=== PATIENT | female | born 1975 | race Native Hawaiian/Other Pacific Islander ===

== ENCOUNTER 2016-08-24 06:14 | Emergency (ER) | payer BC ==
[~2016-08-24] VITALS: Ht 162.6 cm; Wt 55.8 kg
[2016-08-24 07:06] LABS: PLATELET COUNT 290 K/uL (152-353)
[2016-08-24 07:31] LABS: POTASSIUM 4.4 mmol/L (3.6-5.2); SODIUM 138 mmol/L (136-145)
[2016-08-24 10:50] VITALS: BP 100/60; TEMP 98
== END 2016-08-24 10:50 | disposition home or self-care (01) ==
LOC: ED 06:14
DX: B96.81 Helicobacter pylori [H. pylori] as the cause of diseases classified elsewhere (principal); K29.70 Gastritis, unspecified, without bleeding; N94.89 Other specified conditions associated with female genital organs and menstrual cycle
CPT/HCPCS: 80053; 81000; 85027; 86318; 99283; Q9963

== ENCOUNTER 2017-08-16 10:42 | Outpatient (CLI) | payer BC | END 2017-08-16 23:15 | disposition home or self-care (01) | LOC: RAD 10:42 | DX: M79.671 Pain in right foot (principal) ==

== ENCOUNTER 2018-01-10 12:37 | Emergency (ER) | payer BC ==
[~2018-01-10] VITALS: Ht 162.6 cm; Wt 58.1 kg
[2018-01-10 12:41] VITALS: BP 121/69; TEMP 98.1
== END 2018-01-10 13:26 | disposition home or self-care (01) ==
LOC: ED 12:37
DX: S81.851A Open bite, right lower leg, initial encounter (principal); W54.0XXA Bitten by dog, initial encounter
CPT/HCPCS: 90471; 90715; 96372; 99282

== ENCOUNTER 2018-10-17 15:39 | Outpatient (CLI) | payer BC, OTHER | END 2018-10-17 15:42 | disposition short-term general hospital (02) | LOC: AMB 15:39 | DX: M54.2 Cervicalgia (principal); M54.5 Low back pain; V59.50XA Passenger in pick-up truck or van injured in collision with unspecified motor vehicles in traffic accident, initial encounter; Y92.413 State road as the place of occurrence of the external cause | CPT/HCPCS: A0425; A0427 ==

== ENCOUNTER 2018-10-17 15:50 | Emergency (ER) | payer BC ==
[~2018-10-17] VITALS: Ht 162.6 cm; Wt 58.1 kg
[2018-10-17 21:35] VITALS: BP 117/54; TEMP 99.5
== END 2018-10-17 21:45 | disposition short-term general hospital (02) ==
LOC: ED 15:50
DX: S32.039A Unspecified fracture of third lumbar vertebra, initial encounter for closed fracture (principal); S20.212A Contusion of left front wall of thorax, initial encounter; S20.211A Contusion of right front wall of thorax, initial encounter; V53.6XXA Passenger in pick-up truck or van injured in collision with car, pick-up truck or van in traffic accident, initial encounter
CPT/HCPCS: 96360; 96361; 96375; 99284; J1885; J2060; J2175; J2405

== ENCOUNTER 2019-09-22 13:52 | Outpatient (CLI) | payer BC, OTHER | END 2019-09-22 19:22 | disposition home or self-care (01) | LOC: LAB 13:52 | PROVIDERS: ATTEND Nurse Practitioner Adult Health | DX: Z20.828 Contact with and (suspected) exposure to other viral communicable diseases (principal); R53.83 Other fatigue | CPT/HCPCS: 87635; G2023; U0003 ==